=== PATIENT | male | born 1985 | race Caucasian/White ===

== ENCOUNTER 2019-07-30 12:26 | Day surgery (SDC) | payer OTHER ==
[~2019-07-30] VITALS: Ht 177.8 cm; Wt 127.4 kg
[~2019-07-30 12:26] MED LIST: BUPIVACAINE/PF-EPI 0.5% 1:200K ONE; LIDOCAINE/PF 1%-EPI 1:200K, 30 ML ONE
[2019-07-30] MEDS ORDERED: LACTATED RINGERS 1,000 ML IV SCH (12:54)
[2019-07-30 12:58] VITALS: BP 123/80
[2019-07-30] MEDS ORDERED: CHLORHEXIDINE 15 ML UDC MM ONE (13:00)
[2019-07-30] MEDS ORDERED: CHLORHEXIDINE 15 ML UDC ONE (13:02)
[2019-07-30] MEDS ORDERED: MIDAZOLAM 1 MG/ML, 2ML ONE (13:42)
[2019-07-30] MEDS ORDERED: FENTANYL PF 100 MCG/2ML ONE ×2 (13:42→15:04)
[2019-07-30] MEDS ORDERED: DEXAMETHASONE 4 MG/ML, 1ML ONE (14:08)
[2019-07-30] MEDS ORDERED: ONDANSETRON 2MG/ML, 2ML ONE (14:08)
[2019-07-30] MEDS ORDERED: CEFAZOLIN 1,000 MG ONE (14:08)
[2019-07-30] MEDS ORDERED: PROPOFOL 10 MG/ML, 20ML ONE (14:08)
[2019-07-30] MEDS ORDERED: KETOROLAC 30 MG/1 ML ONE (14:08)
[2019-07-30] MEDS ORDERED: OXYcodone 5 MG/5 ML ORAL.SOL UDC PO PRN (14:30)
[2019-07-30] MEDS ORDERED: ACETAMINOPHEN 325 MG TABLET PO PRN (14:30)
[2019-07-30] MEDS ORDERED: PROMETHAZINE 25 MG/ML, 1ML IV PRN (14:30)
[2019-07-30] MEDS ORDERED: hydrALAzine 20 MG/ML, 1ML IV PRN (14:30)
[2019-07-30] MEDS ORDERED: MEPERIDINE/PF 25MG/0.5ML IVPush PRN (14:30)
[2019-07-30] MEDS ORDERED: LABETALOL 5MG/ML, 20ML IV PRN (14:30)
[2019-07-30] MEDS ORDERED: DIAZEPAM 5 MG/ML, 2ML IVPush PRN (14:30)
[2019-07-30] MEDS ORDERED: ALBUTEROL SULFATE 2.5 MG/3 ML NPPB PRN (14:30)
[2019-07-30] MEDS ORDERED: HYDROmorphone 2 MG/ML, 1ML IVPush PRN (14:30)
[2019-07-30] MEDS ORDERED: ACETAMINOPHEN 650 MG/20.3 ML UDC ONE (15:04)
[2019-07-30] MEDS ORDERED: OXYcodone 5 MG/5 ML ORAL.SOL UDC ONE (15:05)
[2019-07-30] MEDS: FENTANYL PF 100 MCG/2ML IV PRN ×2 (15:09→15:14)
== END 2019-07-30 17:10 | disposition home or self-care (01) ==
LOC: OUT 12:26
PROVIDERS: ATTEND Orthopaedic Surgery
DX: S83.231A Complex tear of medial meniscus, current injury, right knee, initial encounter (principal); Z11.59 Encounter for screening for other viral diseases; E66.01 Morbid (severe) obesity due to excess calories; Z79.1 Long term (current) use of non-steroidal anti-inflammatories (NSAID); X58.XXXA Exposure to other specified factors, initial encounter; Y93.89 Activity, other specified; Y92.89 Other specified places as the place of occurrence of the external cause; Y99.8 Other external cause status
CPT/HCPCS: 29881; J0690; J1100; J1885; J2250; J2405; J2704; J3010; J3490; U0001